=== PATIENT | male | born 1945 | race Caucasian/White ===

== ENCOUNTER 2017-07-23 09:36 | Outpatient (CLI) | payer MEDICARE, OTHER ==
[2017-07-23 10:06] LABS: Hematocrit 51.4 % (42.0-52.0); Mean Platelet Volume 8.2 fL (7.4-10.4); Red Blood Cell (RBC) Count 5.39 mill/uL (4.70-6.10); White Blood Cell (WBC) Count 8.4 thou/uL (4.8-10.8)
[2017-07-23 10:27] LABS: Anion Gap 13 mmol/L (10-20); BUN (Urea Nitrogen) 18 mg/dL (8.4-25.7); Calc. Creatinine Clearance 0 mL/min (70-130); Carbon Dioxide 29 mmol/L (23-31); Chloride 103 mmol/L (98-107); Estimated GFR-MDRD 81
== END 2017-07-23 09:37 | disposition home or self-care (01) ==
LOC: LABBT 09:36
PROVIDERS: ATTEND Neurological Surgery
DX: Z01.818 Encounter for other preprocedural examination (principal); M48.061 Spinal stenosis, lumbar region without neurogenic claudication
CPT/HCPCS: 80048; 85027

== ENCOUNTER 2017-07-26 05:55 | Observation (INO) | payer MEDICARE, OTHER ==
[2017-07-23 09:28] VITALS: BMI 29.3
[2017-07-26] MEDS ORDERED: Sodium Chloride 0.9% 0 ML ONE (06:24)
[2017-07-26] MEDS ORDERED: Fentanyl 100 MCG/2 ML VIAL ONE ×4 (06:39→09:57)
[2017-07-26] MEDS ORDERED: Midazolam HCl 2 mg/2 ml Vial ONE (06:39)
[2017-07-26] MEDS ORDERED: CEFAZOLIN/Water 2 GM/20 ML SYRINGE ONE (07:14)
[2017-07-26] MEDS ORDERED: Dexamethasone 20 MG/5 ML VIAL ONE (07:35)
[2017-07-26] MEDS ORDERED: ePHEDrine/0.9% NaCl/PF SYRINGE 50 mg/10 ml ONE (07:35)
[2017-07-26] MEDS ORDERED: Lidocaine 1% PF 5 ML VIAL ONE (07:35)
[2017-07-26] MEDS ORDERED: Propofol 200 MG/20 ML VIAL ONE (07:35)
[2017-07-26] MEDS ORDERED: Ondansetron HCl/PF 4 MG/2 ML Vial ONE (07:35)
[2017-07-26] MEDS ORDERED: Glycopyrrolate 0.2 MG/ML 5 ML SYRINGE ONE (07:35)
[2017-07-26] MEDS ORDERED: diphenhydrAMINE 50 MG/ML VIAL ONE (07:35)
[2017-07-26] MEDS ORDERED: Metoclopramide HCl 10 MG/2 ML VIAL ONE (07:35)
[2017-07-26] MEDS ORDERED: Ketorolac Tromethamine 30 MG/ML VIAL ONE (07:35)
--- NOTE | 2017-07-26 10:27 | OP ---
DATE OF PROCEDURE: 07/26/2017 SURGEON: Mike Downing M.D. [employer] OPERATOR: Jigar. PROCEDURE: L3-L5 laminectomy. PROCEDURE IN DETAIL: The patient was brought into the operating room and intubated. He was rolled in the prone position on gel-filled chest rolls. Incision made exposing L3 through L5 and our level was confirmed by x-ray. We performed complete L5, complete L4, and complete L3 laminectomies compl etely decompressing the neural elements from severe facet arthropathy. At the inferior right L5, th ere was a dural tear with some CSF emanating from this. A piece of Gelfoam was placed in this regio n and reinforced with DuraSeal fibrin sealant. The wound was extensively irrigated, immaculate hemo stasis was secured. Vancomycin powder was applied and the wound was closed in anatomic layers.
[2017-07-26] MEDS ORDERED: HYDROcodone/Acetaminophen 10/325 mg Tablet PO PRN (12:06)
[2017-07-26] MEDS ORDERED: tiZANidine HCl 4 MG TAB PO PRN (12:06)
[2017-07-26] MEDS ORDERED: Milk Of Magnesia 30 ML UDCUP PO PRN (12:06)
[2017-07-26] MEDS ORDERED: Morphine 2 MG/ML SYRINGE SLOW IVP PRN (12:06)
[2017-07-26] MEDS ORDERED: Promethazine HCl 12.5 MG SUPP PR PRN (12:06)
[2017-07-26] MEDS ORDERED: Promethazine HCl 25 MG/ML VIAL IM PRN (12:06)
[2017-07-26] MEDS ORDERED: diphenhydrAMINE 50 MG/ML VIAL IVP PRN (12:06)
[2017-07-26] MEDS ORDERED: Mag-Al 1200 mg/1200 mg/30 ML UDCUP PO PRN (12:06)
[2017-07-26] MEDS ORDERED: diphenhydrAMINE 25 MG CAP PO PRN (12:06)
[2017-07-26] MEDS: HYDROcodone/Acetaminophen 10/325 mg Tablet PO PRN ×2 (13:28→22:05)
[2017-07-26] MEDS: Ketorolac Tromethamine 30 MG/ML VIAL IVP SCH (18:49)
[2017-07-26] MEDS: Sodium Chloride 0.9% 1,000 ML IV SCH (18:51)
[2017-07-26] MEDS: CEFAZOLIN/Water 2 GM/20 ML SYRINGE SLOW IVP SCH (21:03)
[2017-07-27] MEDS: Ketorolac Tromethamine 30 MG/ML VIAL IVP SCH ×2 (00:11→05:54)
[2017-07-27] MEDS: Sodium Chloride 0.9% 1,000 ML IV SCH (01:36)
[2017-07-27] MEDS: CEFAZOLIN/Water 2 GM/20 ML SYRINGE SLOW IVP SCH (04:20)
[2017-07-27 08:22] VITALS: BP 150/78; TEMP 97.8
== END 2017-07-27 11:50 | disposition home or self-care (01) ==
LOC: SDC 05:55 → SURG B 10:14
PROVIDERS: ADMIT Neurological Surgery; ATTEND Neurological Surgery
PROC: 00NY0ZZ Release Lumbar Spinal Cord, Open Approach (ICD-10-PCS; principal; 2017-07-26)
DX: M48.061 Spinal stenosis, lumbar region without neurogenic claudication (principal); I25.10 Atherosclerotic heart disease of native coronary artery without angina pectoris; E78.5 Hyperlipidemia, unspecified; I10 Essential (primary) hypertension; Z79.82 Long term (current) use of aspirin; Z79.899 Other long term (current) drug therapy; Z90.49 Acquired absence of other specified parts of digestive tract; Z96.652 Presence of left artificial knee joint; Z95.1 Presence of aortocoronary bypass graft; Z98.890 Other specified postprocedural states
CPT/HCPCS: 63048; 76001; 96361; 96374 ×2; 96376 ×2; 97110; 97116 ×2; 97139; G0378; G8978; G8979; A4216; J0131; J1100; J1200; J1885; J2001; J2250; J2270; J2405; J2704; J2765; J3010; J3370; J3490

== ENCOUNTER 2018-06-18 11:41 | Outpatient (CLI) | payer MEDICARE ==
--- NOTE | 2018-06-18 13:09 | RAD ---
RIGHT SHOULDER THREE VIEWS: History: Fall. Right shoulder injury. FINDINGS: Acromioclavicular and glenohumeral alignment are maintained. Mild osteophytosis. No acute fracture, d islocation, or aggressive osseous erosions. IMPRESSION: Mild osteoarthritic changes, right shoulder. POS: [facility]
== END 2018-06-18 11:42 | disposition home or self-care (01) ==
LOC: SCSRAD 11:41
PROVIDERS: ATTEND Family Medicine
DX: S49.91XA Unspecified injury of right shoulder and upper arm, initial encounter (principal); M19.011 Primary osteoarthritis, right shoulder

== ENCOUNTER 2022-10-24 09:36 | Outpatient (CLI) | payer MEDICARE | END 2022-10-24 09:37 | disposition home or self-care (01) | LOC: SCSRAD 09:36 | PROVIDERS: ATTEND Family Medicine | DX: M54.42 Lumbago with sciatica, left side (principal); M47.816 Spondylosis without myelopathy or radiculopathy, lumbar region; M43.16 Spondylolisthesis, lumbar region | CPT/HCPCS: 72100 ==

== ENCOUNTER 2022-11-28 08:27 | Outpatient (CLI) | payer MEDICARE | END 2022-11-28 08:28 | disposition home or self-care (01) | LOC: SCSMRI 08:27 | PROVIDERS: ATTEND Specialist | DX: M51.17 Intervertebral disc disorders with radiculopathy, lumbosacral region (principal); M48.061 Spinal stenosis, lumbar region without neurogenic claudication; M48.07 Spinal stenosis, lumbosacral region | CPT/HCPCS: 72158; 82565 ==

== ENCOUNTER 2025-08-05 11:23 | Outpatient (CLI) | payer MEDICARE | END 2025-08-05 11:24 | disposition home or self-care (01) | LOC: SCSRAD 11:23 | PROVIDERS: ATTEND Family Medicine | DX: M25.551 Pain in right hip (principal) ==